=== PATIENT | female | born 1970 | race Caucasian/White ===

== ENCOUNTER 2017-04-05 21:35 | Emergency (ER) | payer OTHER ==
[~2017-04-05 21:35] MED LIST: ACETAMINOPHEN PO; ASPIRIN EC81 M1 PO; ASPIRIN81 M2 PO; BENTYL10 MG PO; BENTYL20 MG PO; FLEXERIL10 MG; FLEXERIL10 MG PO; HCTZ; LORTAB 5/500 TA1 TA1; LORTAB 5/500 TA1 TA1 PO; MEDROL PO; METOPROLOL TAR25 MG PO; METOPROLOL TART25 MG PO; NAPROXEN PO; NO MEDICATIONS; PHENERGAN PO; PHENERGAN25 M1 PO; PREDNISONE10 MG/DOSE PO; ROBAXIN500 MG PO; VICODIN 5/1 TAB 5/50 PO; VOLTAREN50 MG PO; VOLTAREN75 MG PO
[2017-04-05] MEDS ORDERED: NORVASC (21:47)
[2017-04-05 23:03] LABS: BASOPHIL# 0.1 X10e3 (0-0.3); BASOPHIL% 1.2 % (0-2.5); EOSINOPHIL% 0.4 % (0.0-7.0); HEMATOCRIT 31.9 % (35.0-45.0); HEMOGLOBIN 10.7 gm/dL (12.0-16.0); LYMPHOCYTE# 1.1 X10e3 (1.0-3.5); LYMPHOCYTE% 16.4 % (17.0-45.0); MEAN CELL VOLUME 96.5 FL (83-96); MEAN CORPUSCULAR HEMOGLOBIN 32.5 PG (28-34); MEAN CORPUSCULAR HGB CONC 33.7 g/dL (30-36); MEAN PLATELET VOLUME 6.7 FL (6.5-11.5); MONOCYTE# 0.4 X10e3 (0-1.0); MONOCYTE% 6.1 % (3.0-12.0); NEUTROPHIL# 5.2 X10e3 (1.5-7.1); NEUTROPHIL% 75.9 % (40-75); PLATELET COUNT 602 X10e3 (140-420); RED CELL DISTRIBUTION WIDTH 13.5 % (11.0-15.5); WHITE BLOOD COUNT 6.9 X10e3 (4.0-10.5)
[2017-04-05 23:07] LABS: DIFF IND NO
[2017-04-05 23:41] LABS: BUN/CREATININE RATIO 15.55; CALCIUM SERUM 8.7 mg/dL (8.4-10.2); CREATININE SERUM 0.9 mg/dL (0.6-1.4); GLOM FILT RATE Estimated 76.2 mL/min (>60); POTASSIUM 3.1 mmol/L (3.5-5.1)
[2017-04-06 00:17] LABS: URINE SOURCE CLEAN CATCH
[2017-04-06 00:20] LABS: URINE APPEARANCE CLEAR; URINE BILIRUBIN NEG (NEG); URINE BLOOD TRACE-INTACT (NEG); URINE COLOR DK YELLOW; URINE GLUCOSE NEG (NORM); URINE KETONE 1+ (NEG); URINE LEUKOCYTE ESTERASE NEG (NEG); URINE NITRATE POS (NEG); URINE PROTEIN 1+ (NEG); URINE SPECIFIC GRAVITY 1.025 (1.003-1.035); URINE UROBILINOGEN 0.2 MG/DL (NORM)
[2017-04-06 00:23] LABS: MICRO INDICATED? YES
[2017-04-06 00:30] LABS: AMPHETAMINE POS (NEG); BARBITURATES NEG (NEG); BENZODIAZEPINES POS (NEG); COCAINE NEG (NEG); MARIJUANA POS (NEG); OPIATES POS (NEG); TRICYCLIC ANTIDEPRESSANTS NEG (NEG); U METHADONE NEG (NEG)
[2017-04-06 00:36] LABS: CULTURE INDICATED? YES; URINE BACTERIA 4+ (NEG); URINE MUCUS PRESENT; URINE SQUAMOUS EPITHELIAL CELL OCCAS /[HPF]
[2017-04-06] MEDS ORDERED: BACTRIM DS TAB1 EACH PO (01:08)
== END 2017-04-06 01:08 | disposition home or self-care (01) ==
LOC: SED 21:35
PROVIDERS: Physician Assistant
DX: N39.0 Urinary tract infection, site not specified (principal); E87.6 Hypokalemia; F19.10 Other psychoactive substance abuse, uncomplicated; F17.210 Nicotine dependence, cigarettes, uncomplicated; Z88.0 Allergy status to penicillin; Z88.5 Allergy status to narcotic agent; Z79.899 Other long term (current) drug therapy
CPT/HCPCS: 36415; 51701; 80048; 80307; 81003; 85025; 87086; 87088; 87186; 99283